=== PATIENT | female | born 1995 | race Caucasian/White ===

== ENCOUNTER 2018-06-01 04:00 | Inpatient (IN) ==
[2018-06-01] MEDS ORDERED: Metoclopramide 10 MG/2 ML VIAL IVP PRN (04:12)
[2018-06-01] MEDS ORDERED: miSOPROStol 25 MCG TABLET VG PRN (04:12)
[2018-06-01] MEDS ORDERED: Famotidine 20 MG/2 ML VIAL IVP PRN (04:12)
[2018-06-01] MEDS ORDERED: Naloxone 0.4 MG/ML INJ IVP PRN ×2 (04:12→17:46)
[2018-06-01] MEDS ORDERED: Ondansetron 4 MG/2 ML VIAL IVP PRN ×2 (04:12→17:48)
[2018-06-01] MEDS ORDERED: *HR* Nalbuphine 10 MG/ML AMPUL IVP PRN (04:12)
[2018-06-01] MEDS ORDERED: D5% in 0.45% NACL 1,000 ML IVC SCH (04:15)
[2018-06-01 05:06] LABS: Basophils % 0.2 %; Eosinophils # 0.1 K/mcL (0.0-0.6); Eosinophils % 0.7 %; Hematocrit 36.1 % (35.3-44.9); Hemoglobin 11.9 g/dL (11.5-15.4); Lymphocytes # 2.6 K/mcL (0.6-4.6); Lymphocytes % 22.9 %; Mean Corpuscular Hemoglobin 27.4 pg (28.0-33.3); Mean Platelet Volume 13.7 fL (9.4-12.4); Monocytes # 0.7 K/mcL (0.0-1.3); Monocytes % 5.7 %; Platelet Count 192 K/mcL (140-400); Red Blood Count 4.35 M/mcL (3.82-4.97); Red Cell Distribution Width 16.7 % (11.5-14.5); Segmented Neutrophils % 69.5 %
[2018-06-01 05:24] LABS: Amphetamine Screen,Urine Negative ng/mL (Cutoff=1000); Barbiturate Screen,Urine Negative ng/mL (Cutoff=200); Benzodiazepines Screen,Urine Negative ng/mL (Cutoff=200); Cannabinoid Screen,Urine Negative ng/mL (Cutoff = 50); Cocaine Screen,Urine Negative ng/mL (Cutoff= 300); Opiate Screen,Urine Negative ng/mL (Cutoff=300); Phencyclidine Screen,Urine Negative ng/mL (Cutoff=25)
--- NOTE | 2018-06-01 06:02 | OB/GYN History & Physical ---
Date of Encounter: 06/01/18 Time of Encounter: 05:59 Assessment and Plan (1) Post-dates Current visit: Yes Status: Acute Admit for induction of labor. Vancomycin for GBS ppx Epidural if requested. Anticipate . Qualifiers: Post-term type: 40-42 weeks gestation Qualified Code(s): O48.0 - Post-term (2) Single umbilical artery affecting management of mother in urban , antepartum Current visit: Yes Status: Acute (3) Late care affecting in third trimester Current visit: Yes Status: Acute (4) Positive GBS test Current visit: Yes Status: Acute (5) Anemia affecting in third trimester Current visit: Yes Status: Acute History of Present Illness HPI: Ms. Rivera is a 22 year old female presenting for IOL at 41w2d. She denies any complaints today. This is complicated by single umbilical artery and anemia as well as late care. Blood type O positive Rubella immune Serologies negative GBS collected 05/05 positive, repeat 05/09 negative. Will plan to treat since initial test was positive. Past Med Surg Social Fam HX - Past Medical History Medical history: no medical history Additional medical history: ADHD-recently taken off medication for it Psychiatric history: anxiety, depression - Past Surgical History Surgical History: no surgical history - Social History Smoking Status: Never smoker Smokeless Tobacco Status: No Alcohol use: none Drug use: none - Family History Mother Adopted: No Family Member Ethnicity: Non- Living Status: Still Living Hx Family Cardiac Disorders: No Hx Family Respiratory Disorders: No Hx Family Cancer: No Hx Family GI Disorders: No Hx Family Endocrine Disorder: No Hx Family Neuromuscular Disorders: No Hx Family Neurologic Disorders: No Hx Family HEENT Disorders: No Hx Family Autoimmune Disorders: No Obstetrical History - Pregnancies : 2 Para: 1 Term: 1 : 0 Ab's: 0 Livin Medications and Allergies Tablet 1 tab PO DAILY 04/27/16 [History] 3 Allergy/AdvReac Type Severity Reaction Status Date / Time Bee Pollen Allergy Hives Verified 06/01/18 04:35 Penicillins Allergy Hives Verified 06/01/18 04:35 shellfish derived Allergy Hives Verified 06/01/18 04:35 Sulfa (Sulfonamide Allergy Difficulty Verified 06/01/18 04:35 Antibiotics) Breathing Review of System OB All systems PM: reviewed and no additional remarkable complaints except as stated Exam - Constitutional Constitutional: well developed, well nourished, no acute distress - HEENT HEENT: Mucus Membranes Moist - Lungs Respiratory exam: CTAB - Cardiovascular Cardiovascular exam: RRR - Abdomen Abdomen: Present: gravid - Extremities Extremities exam: normal inspection, pedal edema (mild bilaterally) - Cervix Dilation: 3 (2-3 in office yesterday) - Anus/Rectum Anus/Rectum: Present: normal perianal skin Results Result Diagrams: 06/01/18 04:14 Abnormal lab results WBC 11.5 K/mcL (4.3-11.1) H 06/01/18 04:14 MCH 27.4 pg (28.0-33.3) L 06/01/18 04:14 RDW 16.7 % (11.5-14.5) H 06/01/18 04:14 MPV 13.7 fL (9.4-12.4) H 06/01/18 04:14 All other labs normal. - VTE Reasons for not Prescribing Prophylaxis: Treatment not Indicated - Low risk for VTE
--- NOTE | 2018-06-01 10:01 | OB Labor Progress Note ---
Date of Encounter: 06/01/18 Time of Encounter: 09:58 Labor Progress Note - Subjective Subjective: Comfortable but starting to feel contractions - Cervix Cervix: 3/75/-1 - Heart Tones Heart Tones: 145/moderate/-decels - [place]: adjusted - Interventions Interventions: cervical corona with 60cc balloon placed - Plan Plan: start pitocin per policy anticipate
[2018-06-01] MEDS ORDERED: Oxytocin 20 units/ LR 1000 mL 20 UNIT/1,000 ML BAG IVC ONE (10:27)
[2018-06-01] MEDS ORDERED: Ringers Solution, Lactated 1,000 ML ONE ×2 (10:27→17:43)
--- NOTE | 2018-06-01 13:50 | OB Labor Progress Note ---
Date of Encounter: 06/01/18 Time of Encounter: 13:48 Labor Progress Note - Subjective Subjective: Coping well with contractions - Cervix Cervix: 4/80/-1 - Heart Tones Heart Tones: 140/moderate/+accel/-decel - [place]: adjusted - Interventions Interventions: AROM for small amount clear fluid - Plan Plan: Continue pitocin per policy Encourage repositioning Anticipate
[2018-06-01] MEDS ORDERED: EPHEDrine 50 MG/ML VIAL IVP PRN (17:48)
[2018-06-01] MEDS ORDERED: Bupivacaine-MPF 0.25% 10 ML VIAL EP ONE (17:48)
[2018-06-01] MEDS ORDERED: *HR* FentaNYL (PF) 100 MCG/2 ML VIAL EP ONE (17:48)
[2018-06-01] MEDS ORDERED: *HR* FentaNYL (PF) 100 MCG/2 ML VIAL ONE (17:52)
[2018-06-01] MEDS ORDERED: Bupivacaine-MPF 0.25% 10 ML VIAL ONE (17:53)
[2018-06-01] MEDS ORDERED: Epidural Premix (fent/bupiv) 110 ML EP SCH (18:00)
--- NOTE | 2018-06-01 18:06 | OB Labor Progress Note ---
Date of Encounter: 06/01/18 Time of Encounter: 18:05 Labor Progress Note - Subjective Subjective: patient is requesting epidural - Vital Signs Vital Signs: VSS - Cervix Cervix: 7cm - Heart Tones Heart Tones: CAT 1 - Plan Plan: ok for epidural, pitocin @ 6, anticipate
--- NOTE | 2018-06-01 18:39 | Anesthesia Evaluation PreOp ---
Date of Encounter: 06/01/18 Time of Encounter: 18:03 - Past History Planned Operation: JÚNIOR Cardiac History: Denies any Significant Hx Pulmonary History: Denies Any Significant HX FOAM CHARGER History: Denies Any Significant HX Other Medical History: Denies Any Significant HX, Other Anesthesia History: No Prior Anesthetic Complications, Past Anesthesia (no family history of anesthetic complications.) : Yes Alcohol Use: none Drug use: none Medications and Allergies Tablet 1 tab PO DAILY 04/27/16 [History] 3 Allergy/AdvReac Type Severity Reaction Status Date / Time azithromycin Allergy Hives Verified 06/01/18 06:25 Bee Pollen Allergy Hives Verified 06/01/18 04:35 Penicillins Allergy Hives Verified 06/01/18 04:35 shellfish derived Allergy Hives Verified 06/01/18 04:35 Sulfa (Sulfonamide Allergy Difficulty Verified 06/01/18 04:35 Antibiotics) Breathing - Meds/Allergy Pre-op Review Medications Reviewed: Yes Allergies Reviewed: Yes Beta Blockers on Current Med List: No Anesthesia Results - Labs 06/01/18 04:14 Anesthesia Exam 1803 BP 140/90 P 88 R 22 Height: 5'8" Weight: 12.6 NPO (# of Hours): 4 Pain Scale: 9 Pain Scale Used: Numeric (1 - 10) - HEENT Pupil (Motor): Pupils equal Mallampati: II Teeth: Normal Oral Opening: Greater than 3 - FOAM CHARGER LOC: Oriented FOAM CHARGER Motor: Normal RUE, Normal LUE, Normal RLE, Normal LLE, Normal Face FOAM CHARGER Sensory: Normal: RUE, LUE, RLE, LLE, Face - Cardiac Rhythm: Regular Murmur: None JVD: No Carotid Bruit: No - Pulmonary Breath Sounds: bilateral Clear Respiratory Effort: Symmetrical Anesthesia Assess/Plan ASA Score: 2 Modified Ag Scale for Level of Consciousness: Cooperative, oriented, and tranquil Anesthetic Plan: Regional Autologous Blood: No Monitoring Plan: Standard Monitors Recovery Plan: Other
--- NOTE | 2018-06-01 18:48 | Anesthesia Procedures ---
Date of Encounter: 06/01/18 Time of Encounter: 18:05 Procedures: Anesthesia - Epidural/Spinal Patient ID/Chart reviewed: Yes Patient examined: Yes OB Eval: Gestational age: 41.2 OB Eval: : 2 OB Eval: Hx Para: 1 OB Eval: Dilated at (cm): 7 OB Eval: Contractions: Non-stressed pattern Consent Obtained: Yes Supplemental Oxygen: None/Room Air Site Prep: Aseptic Technique, Sterile prep and drape, Povidone-Iodine 1% Patient position: upright Local Anesthetic: Lidocaine 1% Amount of Local Anesthetic used: 3 Touhy Needle Gauge: 18 Touhy Needle Depth (cm): 7 Catheter Depth at Skin (cm): 16 Test Dose (1.5% Lido + Epi): Volume given (mls): 3 Test Dose Result: Negative Loading Dose: Fentanyl (mcg): 100 Loading Dose Administered: Thru Catheter Infusion Med: 0.125% Bupivacaine w/ 2 mcg/ml Fentanyl Infusion Rate (mls/hr): [address]: Tegaderm, Tape Interspace Used: L4-L5 Loss of Resistance (MERRITT): Yes Blood: No CSF: No Paresthesia: No Procedure: JÚNIOR placed 1st pass in upright position, bolus placed, and patient to supine position. heart tones decelerated after bolus. Aicha checked dilation multiple occasions while patient was given oxygen and rolled to left and right sides to relieve bradycardia. Quick dilation from 7 to complete within minutes following bolus. heart rate normalized and pushing ensued. Baby delivered successfully. Vitals + FHT's: 1803 BP 140/90 P 88 R 22 1825 BP 138/70 P 95 R 18 FHT 130s
--- NOTE | 2018-06-01 19:22 | Anesthesia Progress Note ---
Date of Encounter: 06/01/18 Time of Encounter: 18:03 Anesthesia Note - Note Note: 06/01/18 19:05 1800 Called to L & D regarding patient requesting epidural placement after previously stating that she preferred an unmedicated childbirth for labor. Nurse stated patient was dilated to 7cm on last check. Epidural cart setup for procedure and taken to room. Benefits and risks explained x2 during the day, including immediately prior to consent. After full explanation of expectations, benefits, risks, the patient stated she would like an epidural and signed consent for placement. Patient to side of bed for procedure and family was asked to leave the room for procedure due to sterility and safety. Epidural placed first pass, bolus administered and patient supine. bradycardia occurred and patient was moved to left and right displacement, nonrebreather oxygen placed on patient, and patient was checked for dilation to find quick changes to complete status. Father of baby entered room angry, stating patient was forced to have epidural placement and was unable to make adequate decisions due to "high anxiety" and that he knew she should not have had epidural placement and that "she knew it too". Discussions were ceased because delivery ensued. Baby delivered successfully. Beth Subramanian Labor and restaurant delivery driver notified regarding angry father and accusations being made toward BANDING MACHINE OPERATOR for epidural placement.
--- NOTE | 2018-06-01 21:06 | OB/GYN Procedure Note ---
Delivery - Delivery Date: 06/01/18 Provider: Fausto Nails Intrapartum events: none Delivery induction: AROM, oxytocin, misoprostol Delivery augmentation: rupture of membranes, pitocin - Infant (s) Infant A Delivery Date: 06/01/18 Infant Delivery Time: 18:49 Presentation: vertex Position: BLUE Gender: Female Viability: Viable Weight Gram: 3.459 kg at 1 minute: 8 at 5 mins: 9 Shoulder Dystocia: not encountered - Repair Laceration Description: Perineal - 1st Degree - Comments Comments: 22 y/o now delivered a viable female @ 1845hrs, nuchal cord x 2 released. delivered BLUE, weight 3459g, APGARs 8/9. Placenta delivered intact @ 1848hrs, 1st degree laceration repaired in usual fashion, EBL 150. Mother and infant stable.
[2018-06-01] MEDS ORDERED: Measles/Mumps/Rubella Vacc 0.5 ML VIAL SQ PRN (21:39)
[2018-06-01] MEDS ORDERED: Ibuprofen 600 MG TABLET PO PRN (21:39)
[2018-06-01] MEDS ORDERED: Acetaminophen 325 MG TABLET PO PRN (21:39)
[2018-06-01] MEDS ORDERED: Oxytocin 20 units/ LR 1000 mL 20 UNIT/1,000 ML BAG IVC SCH (21:39)
[2018-06-02 07:13] LABS: Basophils % 0.2 %; Eosinophils % 0.1 %; Hemoglobin 10.4 g/dL (11.5-15.4); Lymphocytes # 1.7 K/mcL (0.6-4.6); Lymphocytes % 13.2 %; Mean Corpuscular HGB Conc 33.5 g/dL (31.6-35.5); Mean Corpuscular Volume 83.3 fL (83.0-100.0); Mean Platelet Volume 13.4 fL (9.4-12.4); Monocytes % 7.8 %; Neutrophils # 9.7 K/mcL (1.6-8.9); Platelet Count 129 K/mcL (140-400); Red Blood Count 3.72 M/mcL (3.82-4.97); Red Cell Distribution Width 16.7 % (11.5-14.5); Segmented Neutrophils % 77.7 %
[2018-06-02] MEDS ORDERED: Prenatal Vit/FA 1 EACH TABLET PO SCH (09:00)
[2018-06-02] MEDS ORDERED: NON-FORMULARY MEDICATION 1 EACH EACH (Prenatal Tablet 1 TAB) PO SCH (09:00)
--- NOTE | 2018-06-02 10:27 | Discharge Summary ---
Date of Encounter: 06/02/18 Time of Encounter: 10:24 - Discharge Diagnosis (1) Breast feeding status of mother Priority: Secondary Status: Acute Comments: support prn (2) (normal spontaneous vaginal delivery) Priority: Primary Status: Acute Comments: Continue routine care discharge home today follow up wit Dr. Valdez in 4-6 weeks - Discharge Medications Prescriptions: Ibuprofen [Motrin] 600 mg PO Q6HR PRN #60 tablet PRN Reason: Cramping Breast Pump [BREAST PUMP] 1 each .ROUTE AD #1 each Docusate [Colace] 100 mg PO BID #30 capsule Home Medications: Tablet 1 tab PO DAILY 04/27/16 [History] Breast Pump [BREAST PUMP] 1 each .ROUTE AD #1 each 06/02/18 [Rx] Docusate [Colace] 100 mg PO BID #30 capsule 06/02/18 [Rx] Ibuprofen [Motrin] 600 mg PO Q6HR PRN #60 tablet 06/02/18 [Rx] Allergies/Adverse Reactions: 3 Allergy/AdvReac Type Severity Reaction Status Date / Time azithromycin Allergy Hives Verified 06/01/18 06:25 Bee Pollen Allergy Hives Verified 06/01/18 04:35 Penicillins Allergy Hives Verified 06/01/18 04:35 shellfish derived Allergy Hives Verified 06/01/18 04:35 Sulfa (Sulfonamide Allergy Difficulty Verified 06/01/18 04:35 Antibiotics) Breathing Data Procedures and tests throughout hospitalization: Laboratory Tests 06/01/18 06/01/18 06/02/18 04:14 04:45 05:30 WBC 11.5 H RBC 4.35 Hgb 11.9 Hct 36.1 MCV 83.0 MCH 27.4 L MCHC 33.0 RDW 16.7 H Plt Count 192 MPV 13.7 H Immature Gran % 1.0 Seg Neutrophils % 69.5 Lymphocytes % 22.9 Monocytes % 5.7 Eosinophils % 0.7 Basophils % 0.2 Neutrophils # 8.0 Lymphocytes # 2.6 Monocytes # 0.7 Eosinophils # 0.1 Basophils # 0.0 Urine Opiates Screen Negative Ur Barbiturates Screen Negative Ur Phencyclidine Scrn Negative Ur Amphetamines Screen Negative U Benzodiazepines Scrn Negative Urine Cocaine Screen Negative U Marijuana (THC) Screen Negative Ur Drug Screen Interp See Below Specimen Rejected Clotted 06/02/18 06:50 WBC 12.5 H RBC 3.72 L Hgb 10.4 L D Hct 31.0 L MCV 83.3 MCH 28.0 MCHC 33.5 RDW 16.7 H Plt Count 129 L MPV 13.4 H Immature Gran % 1.0 Seg Neutrophils % 77.7 Lymphocytes % 13.2 Monocytes % 7.8 Eosinophils % 0.1 Basophils % 0.2 Neutrophils # 9.7 H Lymphocytes # 1.7 Monocytes # 1.0 Eosinophils # 0.0 Basophils # 0.0 Urine Opiates Screen Ur Barbiturates Screen Ur Phencyclidine Scrn Ur Amphetamines Screen U Benzodiazepines Scrn Urine Cocaine Screen U Marijuana (THC) Screen Ur Drug Screen Interp Specimen Rejected Labs on day of discharge: Labs from last 24 hours 06/02/18 06/02/18 06:50 05:30 WBC 12.5 H RBC 3.72 L Hgb 10.4 L D Hct 31.0 L MCV 83.3 MCH 28.0 MCHC 33.5 RDW 16.7 H Plt Count 129 L MPV 13.4 H Immature Gran % 1.0 Seg Neutrophils % 77.7 Lymphocytes % 13.2 Monocytes % 7.8 Eosinophils % 0.1 Basophils % 0.2 Neutrophils # 9.7 H Lymphocytes # 1.7 Monocytes # 1.0 Eosinophils # 0.0 Basophils # 0.0 Specimen Rejected Clotted Date of admission: 06/01/18 04:11 Primary care physician: Vikki Gonzalez Consults: 06/01/18 21:39 Consult to Fire Officer [CONS] Routine Comment: Vaginal delivery, consult needed 06/02/18 08:26 Consult to Tube Drawing Supervisor (W&C) [CONS] Stat Reason For Exam: Reason for SW Consult: Concern of husbands behavior towards patient. It was noticed that he was controlling and very angery with patient. There is concern for patient well being after leaving the hospital. The patients tried to refuse the patient getting an epidural when the patient requested it. He became very angry with patient at this time. Discharging clinician: Yara Gregorio Anticipated date of discharge: 06/02/18 - Patient Status Disposition: Home, Self-Care Condition: Good Functional capacity at discharge: independent ambulation - Discharge Instructions Follow Up With: Vikki Gonzalez, PLATFORM MAN [Primary Care Provider] - Alexis Valdez DO [Partnered Physician] - - Diet and Activity Activity: increase activity as tolerated Diet: regular diet Hospital Course Reason for admission: induction of labor Delivery: Episiotomy: none Laceration: 1st degree Other procedures: none complications: none Discharge diagnosis: IUP at term delivered [place] baby: female (breast feeding) Time Attestation: Total time spent providing and/or coordinating discharge services: Time Spent: Greater than 30 minutes Exam - Constitutional Vitals: Temp Pulse Resp BP Pulse Ox 98.3 F 99 16 105/70 98 06/02/18 07:54 06/02/18 07:54 06/02/18 07:54 06/02/18 07:54 06/02/18 05:34 General appearance IM: A&O X 3, pleasant, answers questions appropriately - Respiratory Respiratory exam: Present: CTAB - Cardiovascular Cardiovascular exam IM: Present: RRR, +S1, +S2 - GI/Abdominal GI/Abdominal exam IM: normal bowel sounds - Uterine Tone: Firm Uterus Position: At Umbilicus, Midline - Extremities Exam Extremities exam IM: Present: full ROM, normal capillary refill - Neurological Exam Neurological exam: alert, oriented X3, reflexes normal
[2018-06-02 16:18] VITALS: BP 109/73
== END 2018-06-02 21:18 | disposition home or self-care (01) | DRG 560 ==
LOC: 1NENULAB 04:11 → 1NENUOBS 21:38
PROVIDERS: ADMIT Student in an Organized Health Care Education/Training Program; ATTEND Student in an Organized Health Care Education/Training Program